=== PATIENT | female | born 1955 | race Caucasian/White ===

== ENCOUNTER → 2016-05-31 | Outpatient (CLI) | payer MEDICAID ==
--- NOTE | 2016-05-31 15:30 | MA ---
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 Comparison: Post stereotactic mammogram September 29, 2015 and prebiopsy mammogram September 03, 2015. Technique: 2 views the right breast. Images reviewed with iCAD. Density: B Findings:A small irregular density at the site of the previous biopsy in the lower inner right breast is consistent with a small scar, recurrent amyloid deposition and/or remnant residual hematoma at th e site of biopsy (there was a prior larger, but small, hematoma in the post biopsy site). The biopsy was performed for microcalcifications associated with minimal tubular density. No residual or recurre nt microcalcifications are present. . Impression: Probably benign postoperative change at the site of previous biopsy. Recommend attention to this area on a bilateral diagnostic mammogram at the time of routine screening mammography which should be scheduled 6 months from now in November 2016. BI-RADS 3, probably benign.
== END ==
LOC: FIMAGING 14:51
PROVIDERS: ATTEND Internal Medicine Hematology & Oncology
DX: R92.8 Other abnormal and inconclusive findings on diagnostic imaging of breast (principal); Z98.890 Other specified postprocedural states
CPT/HCPCS: G0206

== ENCOUNTER → 2016-11-26 | Outpatient (CLI) | payer MEDICAID | LOC: FIMAGING 14:04 | PROVIDERS: ATTEND Internal Medicine Hematology & Oncology | DX: R92.8 Other abnormal and inconclusive findings on diagnostic imaging of breast (principal) | CPT/HCPCS: G0204 ==

== ENCOUNTER → 2017-07-30 | Outpatient (CLI) | payer MEDICAID ==
[~2017-07-30] MED LIST: GADOBUTROL 10 ML VIAL IVP ONE
== END ==
LOC: FIMAGING 11:46
PROVIDERS: ATTEND Internal Medicine
DX: G50.0 Trigeminal neuralgia (principal)
CPT/HCPCS: A9585

== ENCOUNTER → 2018-09-03 | Outpatient (CLI) | payer OTHER | LOC: FIMAGING 14:49 | PROVIDERS: ATTEND Internal Medicine | DX: M26.69 Other specified disorders of temporomandibular joint (principal); J34.2 Deviated nasal septum ==